=== PATIENT | female | born 1970 | race Hispanic/Latino ===

== ENCOUNTER 2019-12-16 14:21 | Emergency (ER) | payer MEDICARE, OTHER ==
--- NOTE | 2019-12-16 15:22 | Event Note ---
ED Screening Note ED Screening Note: n/v/d that began this morning no known sick contacts states she ate [employer] last and polish no urinary sx abd cramping no fever PMHx asthma allergy: PCN, doxycycline, aspirin went through menopause This initial assessment/diagnostic orders/clinical plan/treatment(s) is/are subject to change based on patients health status, clinical progression and re- assessment by fellow clinical providers in the ED. Further treatment and workup at subsequent clinical providers discretion. Patient/guardian urged not to elope from the ED as their condition may be serious if not clinically assessed and managed. Initial orders include: labs, UA
[2019-12-16 15:55] LABS: Hematocrit 44.4 % (30.3-42.9); Hemoglobin 15.2 gm/dl (10.1-14.3); Mean Corpuscular HGB Conc 34 % (30-34); Mean Corpuscular Volume 88 fl (79-97); Platelet Count 210 K/mm3 (140-440); Red Blood Count 5.05 M/mm3 (3.65-5.03); Red Cell Distribution Width 13.2 % (13.2-15.2)
[2019-12-16 15:56] LABS: Bilirubin,Urine NEG (Negative); Blood,Urine NEG (Negative); Color,Urine Yellow (Yellow); Mucus,Urine 1+ /HPF; Protein,Urine <15 mg/dL mg/dL (Negative); Urobilinogen,Urine < 2.0 mg/dL (<2.0)
[2019-12-16] MEDS ORDERED: SODIUM CHLORIDE 0.9% 1000 ML 1,000 ML IV ONE (16:00)
[2019-12-16] MEDS ORDERED: MORPHINE 4 MG/1 ML INJ IV ONE (16:00)
[2019-12-16] MEDS ORDERED: ONDANSETRON 4 MG/2 ML INJ IV ONE (16:00)
--- NOTE | 2019-12-16 16:03 | Emergency Department Report ---
ED Abdominal Pain HPI - General Chief Complaint: Nausea/Vomiting/Diarrhea Stated Complaint: N/V/HEADACHE Time Seen by Provider: 12/16/19 15:21 Source: patient Mode of arrival: Ambulatory Limitations: No Limitations - History of Present Illness Initial Comments: Patient is 49 years old female with no significant past medical history. Patient presented to the ER complaining of diffuse abdominal pain, sharp with no radiation. Patient stated the pain associated with nausea vomiting and diarrhea. Patient stated that she ate Martiniquais food last night. Patient is also complaining of low grade temperature. MD Complaint: abdominal pain -: This morning Location: diffuse Radiation: none Migration to: no migration Severity: moderate Quality: sharp Consistency: constant - Related Data Previous Rx's Medication Instructions Recorded Last Taken Type ALBUTEROL Inhaler(NF) [VENTOLIN 2 puff IH Q6H PRN 1 Days #1 inha 10/08/18 Unknown Rx Inhaler(NF)] Azithromycin [Zithromax Z-VANDANA] 250 mg PO DAILY 5 Days #1 pkg 10/08/18 Unknown Rx Cetirizine HCl [ZyrTEC] 10 mg PO QAM 14 Days #14 capsule 10/08/18 Unknown Rx Fluticasone [Flonase] 1 spray NS QDAY 14 Days #1 bottle 10/08/18 Unknown Rx Ibuprofen [Motrin] 600 mg PO Q8H PRN #12 tablet 10/08/18 Unknown Rx Ondansetron [Zofran ODT TAB] 8 mg PO Q8HR PRN #12 tab.rapdis 10/08/18 Unknown Rx guaiFENesin/CODEINE [Robitussin AC] 10 ml PO QHS PRN #70 oral.liqd 10/08/18 Unknown Rx methylPREDNISolone [Medrol Dose 4 mg PO DAILY #1 tab.ds.pk 10/08/18 Unknown Rx Vandana] Allergies Allergy/AdvReac Type Severity Reaction Status Date / Time doxycycline Allergy Swelling Verified 10/08/18 14:47 Penicillins Allergy Anaphylaxis Verified 10/08/18 14:47 ED Review of Systems ROS: Stated complaint: N/V/HEADACHE Other details as noted in HPI Comment: All other systems reviewed and negative Constitutional: chills, fever Respiratory: denies: cough, shortness of breath, SOB with exertion, wheezing Cardiovascular: palpitations. denies: chest pain Gastrointestinal: abdominal pain, nausea, vomiting, diarrhea. denies: constipation, hematemesis, melena, hematochezia Musculoskeletal: denies: back pain Neurological: denies: headache, weakness, numbness, paresthesias, confusion, abnormal gait ED Past Medical Hx - Past Medical History Previous Medical History?: Yes Hx Psychiatric Treatment: Yes Hx Asthma: Yes Additional medical history: Back pain, Righ ankle surgery. Chronic pain syndrome, Sleeping disorder, Right ankle pain, Nerve damage right leg - Surgical History Past Surgical History?: Yes Additional Surgical History: Right ankle surgery - Social History Smoking Status: Never Smoker Substance Use Type: None - Medications Home Medications: Home Medications Medication Instructions Recorded Confirmed Last Taken Type ALBUTEROL Inhaler(NF) [VENTOLIN 2 puff IH Q6H PRN 1 Days #1 inha 10/08/18 Unknown Rx Inhaler(NF)] Azithromycin [Zithromax Z-VANDANA] 250 mg PO DAILY 5 Days #1 pkg 10/08/18 Unknown Rx Cetirizine HCl [ZyrTEC] 10 mg PO QAM 14 Days #14 capsule 10/08/18 Unknown Rx Fluticasone [Flonase] 1 spray NS QDAY 14 Days #1 bottle 10/08/18 Unknown Rx Ibuprofen [Motrin] 600 mg PO Q8H PRN #12 tablet 10/08/18 Unknown Rx Ondansetron [Zofran ODT TAB] 8 mg PO Q8HR PRN #12 tab.rapdis 10/08/18 Unknown Rx guaiFENesin/CODEINE [Robitussin AC] 10 ml PO QHS PRN #70 oral.liqd 10/08/18 Unknown Rx methylPREDNISolone [Medrol Dose 4 mg PO DAILY #1 tab.ds.pk 10/08/18 Unknown Rx Vandana] ED Physical Exam - General Limitations: No Limitations General appearance: alert, in no apparent distress - Head Head exam: Present: atraumatic, normal inspection - Eye Eye exam: Present: normal appearance, PERRL - ENT ENT exam: Present: mucous membranes dry - Neck Neck exam: Present: normal inspection, full ROM. Absent: tenderness, meningismus, lymphadenopathy, thyromegaly - Respiratory Respiratory exam: Present: normal lung sounds bilaterally - Cardiovascular Cardiovascular Exam: Present: tachycardia. Absent: systolic murmur, diastolic murmur - GI/Abdominal GI/Abdominal exam: Present: soft, normal bowel sounds. Absent: distended, tenderness, guarding, rebound, rigid, organomegaly, mass, bruit, pulsatile mass, hernia - Extremities Exam Extremities exam: Present: normal inspection, full ROM, normal capillary refill. Absent: pedal edema, calf tenderness - Back Exam Back exam: Present: normal inspection, full ROM. Absent: CVA tenderness (R), CVA tenderness (L) - Neurological Exam Neurological exam: Present: alert, oriented X3, CN II-XII intact, normal gait, reflexes normal - Skin Skin exam: Present: warm, intact, normal color ED Course Vital Signs 12/16/19 14:38 Temperature 99.8 F H Pulse Rate 121 H Respiratory 18 Rate Blood Pressure 119/81 O2 Sat by Pulse 95 Oximetry ED Medical Decision Making - Lab Data Result diagrams: 12/16/19 15:41 12/16/19 15:41 - Radiology Data Radiology results: report reviewed - Medical Decision Making Patient is 49 years old female with no significant past medical history. Patient presented to the ER complaining of diffuse abdominal pain, sharp with no radiation. Patient stated the pain associated with nausea vomiting and diarrhea. Patient stated that she ate Martiniquais food last night. Patient is also complaining of low grade temperature. Patient received normal saline, Zofran and morphine for pain. Patient labs reviewed and showed slightly elevated white blood cells. CT abdomen and pelvis is negative for acute finding. Patient stated that she is feeling much better, no nausea or vomiting. Patient advised to follow-up with her primary care physician in the next 2 to 3 days and to return to the ER if she is not feeling better. Critical care attestation.: If time is entered above; I have spent that time in minutes in the direct care of this critically ill patient, excluding procedure time. ED Disposition Clinical Impression: Abdominal pain, Nausea & vomiting Disposition: DC-01 TO HOME OR SELFCARE Is pt being admited?: No Condition: Stable Instructions: Abdominal Pain (ED), Acute Nausea and Vomiting (ED) Referrals: ZACKARY BACON MD [Primary Care Provider] - 3-5 Days
[2019-12-16 16:20] LABS: Alanine Aminotransferase 20 units/L (7-56); Albumin 4.5 g/dL (3.9-5); BUN/Creatinine Ratio 18; Blood Urea Nitrogen 14 mg/dL (7-17); Calcium 9.6 mg/dL (8.4-10.2); Hemolysis Index 4
[2019-12-16 16:55] LABS: Basophils % (Manual) 0 % (0.0-1.8); Eosinophils % (Manual) 0 % (0.0-4.3); Platelet Estimate Consistent w Auto; RBC Morphology Normal; Total Cells Counted 100
--- NOTE | 2019-12-16 19:11 | Cat Scan Report ---
CT ABDOMEN AND PELVIS WITH CONTRAST INDICATION: Mid abdominal pain, nausea, vomiting, diarrhea, duration one day CONTRAST: 100 cc Omnipaque 300 IV COMPARISON: None available. All CT scans at this location are performed using CT dose reduction for ALARA by means of automated e xposure control. NOTE: Resolution is decreased and artifact is introduced by the patient's size. FINDINGS: Atelectatic changes are seen in the lung bases. Small hiatal hernia is seen. No significant abdominal wall herniation is noted. No evidence of bowel obstruction is seen. Appendix appears withi n normal limits. Mild colonic diverticulosis is seen without evidence of diverticulitis. Appearance o f portions of the left colon is thought most likely just due to lack of distention. No free fluid is seen. No focal inflammatory changes are noted. No urinary obstructive changes are seen. I see no abno rmalities of the adrenals or kidneys. Mild fatty infiltration of the liver is seen masses are noted. Liver is not significantly enlarged. Spleen shows no significant abnormalities. Pancreas shows mild f atty infiltration but no focal lesions or inflammation. No biliary dilatation is seen. Gallbladder sh ows no abnormalities. No pelvic masses are seen. IMPRESSION: No acute abnormalities are seen Signer Name: Davi Sanderson MD Signed: 12/16/2019 7:06 PM Workstation Name: [id number]
[2019-12-16 19:34] VITALS: BP 96/60
== END 2019-12-16 19:30 | disposition home or self-care (01) ==
LOC: ED 14:21
DX: R10.84 Generalized abdominal pain (principal); R11.2 Nausea with vomiting, unspecified; R19.7 Diarrhea, unspecified; J45.909 Unspecified asthma, uncomplicated; Z98.890 Other specified postprocedural states; Z79.899 Other long term (current) drug therapy; Z88.8 Allergy status to other drugs, medicaments and biological substances
CPT/HCPCS: 36415; 74177; 80053; 81001; 83690; 85007; 85025; 96361; 96374; 96375; 99284; J2270; J2405; J7030; Q9967